=== PATIENT | female | born 1985 | race Hispanic/Latino ===

== ENCOUNTER 2017-03-22 19:08 | Inpatient (IN) | payer MEDICAID ==
[~2017-03-22] VITALS: Ht 152.4 cm; Wt 59.9 kg
[~2017-03-22 19:08] MED LIST: ACET-2247 PO
[2017-03-22 19:51] LABS: BILIRUBIN,URINE NEGATIVE (NEGATIVE); COLOR,URINE YELLOW (YELLOW); GLUCOSE, URINE (UA) NEGATIVE (NEGATIVE); KETONES,URINE >=80 mg/dL (NEGATIVE); LEUKOCYTE ESTERASE ,URINE LARGE (NEGATIVE); NITRATE,URINE NEGATIVE (NEGATIVE); OCCULT BLOOD,URINE TRACE-INTACT (NEGATIVE); PROTEIN,URINE NEGATIVE (NEGATIVE); UROBILINOGEN,URINE 0.2 mg/dL (0.2-1.0)
[2017-03-22 19:52] LABS: APPEARANCE,URINE HAZY (CLEAR)
[2017-03-22] MEDS ORDERED: AMPICILLIN 2GM+NS 100ML 100 ML IV SCH (20:00)
[2017-03-22 20:07] LABS: BACTERIA,URINE Few /HPF (None Seen)
[2017-03-22 20:08] LABS: SQUAMOUS EPITHELIAL CELL,UR 30-50 /LPF (0-2)
[2017-03-22] MEDS: LACTATED RINGERS 1000ML 1,000 ML IV SCH (20:40)
[2017-03-22 20:55] LABS: HEMATOCRIT 33.3 % (36-48); MEAN CORPUSCULAR HEMOGLOBIN 26.1 pg (27.0-33.0); MEAN CORPUSCULAR HGB CONC 32.7 g/dL (32.0-36.0); PLATELET COUNT (AUTO) 342 K/uL (130-400); RED BLOOD CELL COUNT(AUTO) 4.17 MIL/uL (4.00-5.50); WHITE BLOOD COUNT (AUTO) 5.8 K/uL (4.8-10.8)
[2017-03-23] MEDS ORDERED: NALOXONE HCL 0.4 MG/1 ML ML IV PRN
[2017-03-23] MEDS ORDERED: LACTATED RINGERS 500 ML 500 ML IV PRN
[2017-03-23] MEDS ORDERED: EPHEDRINE SULFATE 50 MG/ML AMPULE IVP PRN
[2017-03-23] MEDS ORDERED: ROPIVACAINE 0.2%200ML EPIDURAL 200 ML EP SCH
[2017-03-23] MEDS: AMPICILLIN 1GM+NS 50ML 50 ML IV SCH ×2 (00:57→08:00)
[2017-03-23] MEDS ORDERED: OXYTOCIN 10 USP UNITS/ML ONE ×2 (01:59→08:11)
[2017-03-23] MEDS ORDERED: LACTATED RINGERS 1000ML 1,000 ML IV ONE (01:59)
[2017-03-23] MEDS ORDERED: PROMETHAZINE HCL 25 MG/ML 1ML AMPULE IM SCH (02:00)
[2017-03-23] MEDS ORDERED: PROMETHAZINE HCL 25 MG/ML 1ML AMPULE IM ONE (02:25)
[2017-03-23] MEDS: OXYTOCIN-LR 20 UNITS/1000 ML 1,000 ML IV SCH ×2 (02:49→08:24)
[2017-03-23] MEDS ORDERED: MEASLES/MUMPS/RUBELLA VACCINE, LIVE 0.5 ML/VIAL SQ PRN (03:30)
[2017-03-23] MEDS ORDERED: DIPH,PERTUSS(ACELL),TET VAC/PF 0.5 ML VIAL IM PRN (03:30)
[2017-03-23] MEDS ORDERED: LANOLIN 30GM OINTMENT TP PRN (03:30)
[2017-03-23] MEDS ORDERED: WITCH HAZEL 1 PAD TP PRN (03:30)
[2017-03-23] MEDS ORDERED: ACETAMINOPHEN 325 MG TAB PO PRN (03:30)
[2017-03-23] MEDS: LACTATED RINGERS 1000ML 1,000 ML IV SCH (03:30)
[2017-03-23] MEDS ORDERED: ACETAMINOPHEN-CODEINE 300/30MG TAB PO PRN (03:30)
[2017-03-23] MEDS ORDERED: HYDROCODONE/ACETAMINOPHEN 5/325 MG TAB PO PRN (03:30)
[2017-03-23] MEDS ORDERED: BENZOCAINE/LANOLIN/ALOE VERA 60 ML AEROSOL TP PRN (03:30)
[2017-03-23 04:43] VITALS: BP 122/80
[2017-03-23] MEDS: IBUPROFEN 600 MG TABLET PO PRN ×3 (04:57→21:50)
[2017-03-23] MEDS ORDERED: OXYTOCIN 10 USP UNITS/ML 20 UNIT in LACTATED RINGERS 1000ML 1,000 ML IV SCH (05:00)
[2017-03-23 08:03] VITALS: BP 119/69
[2017-03-23] MEDS: DOCUSATE SODIUM 100 MG CAP PO SCH ×2 (08:24→20:53)
[2017-03-23 11:47] VITALS: BP 110/73
[2017-03-23 16:05] VITALS: BP 105/68
[2017-03-23 19:23] VITALS: BP 105/68
[2017-03-23 23:10] VITALS: BP 103/65
[2017-03-24 03:07] VITALS: BP 107/71
[2017-03-24 05:31] LABS: HEMATOCRIT 28.5 % (36-48); MEAN CORPUSCULAR HEMOGLOBIN 26.5 pg (27.0-33.0); MEAN CORPUSCULAR VOLUME 80.4 fL (79-99); PLATELET COUNT (AUTO) 285 K/uL (130-400); RED BLOOD CELL COUNT(AUTO) 3.54 MIL/uL (4.00-5.50); RED CELL DISTRIBUTION WIDTH 14.2 % (11.0-15.5); WHITE BLOOD COUNT (AUTO) 5.9 K/uL (4.8-10.8)
[2017-03-24 07:24] LABS: HEPATITIS Bs ANTIGEN SCREEN P Negative (Negative)
[2017-03-24 08:03] VITALS: BP 113/74
[2017-03-24] MEDS: DOCUSATE SODIUM 100 MG CAP PO SCH (09:23)
[2017-03-24] MEDS: IBUPROFEN 600 MG TABLET PO PRN (09:24)
[2017-03-24] MEDS: LACTATED RINGERS 1000ML 1,000 ML IV SCH (11:30)
[2017-03-24 12:22] VITALS: BP 112/83
== END 2017-03-24 12:10 | disposition home or self-care (01) | DRG 560 ==
LOC: LDH 19:08 → WSH 03-23 04:40
PROVIDERS: ADMIT Obstetrics & Gynecology; ATTEND Obstetrics & Gynecology
PROC: 10E0XZZ Delivery of Products of Conception, External Approach (ICD-10-PCS; principal; 2017-03-22)
PROC: 3E0R3BZ Introduction of Anesthetic Agent into Spinal Canal, Percutaneous Approach (ICD-10-PCS; 2017-03-22)
PROC: 00HU33Z Insertion of Infusion Device into Spinal Canal, Percutaneous Approach (ICD-10-PCS; 2017-03-22)
PROC: 3E0234Z Introduction of Serum, Toxoid and Vaccine into Muscle, Percutaneous Approach (ICD-10-PCS; 2017-03-22)
PROC: 3E0134Z Introduction of Serum, Toxoid and Vaccine into Subcutaneous Tissue, Percutaneous Approach (ICD-10-PCS; 2017-03-22)
DX: O69.3XX0 Labor and delivery complicated by short cord, not applicable or unspecified (principal); Z23 Encounter for immunization; Z37.0 Single live birth; Z3A.38 38 weeks gestation of pregnancy
CPT/HCPCS: 36415; 81001; 85027; 86592; 86850; 86900; 86901; 87340; 90715; A4314; J0290; J2550; J2590; J7120

== ENCOUNTER 2019-02-06 13:25 | Emergency (ER) | payer MEDICAID, OTHER ==
[2019-02-06 13:45] LABS: APPEARANCE,URINE Clear (CLEAR); BILIRUBIN,URINE Negative (NEGATIVE); COLOR,URINE Yellow (YELLOW); GLUCOSE, URINE (UA) Negative (NEGATIVE); KETONES,URINE 15 mg/dL (NEGATIVE); LEUKOCYTE ESTERASE ,URINE Small (NEGATIVE); NITRATE,URINE Negative (NEGATIVE); OCCULT BLOOD,URINE Negative (NEGATIVE); PROTEIN,URINE Negative (NEGATIVE); UROBILINOGEN,URINE 0.2 mg/dL (0.2-1.0)
[2019-02-06 13:46] LABS: HCG,QUAL RESULT POSITIVE (NEGATIVE)
[2019-02-06 13:51] LABS: BACTERIA,URINE Rare /HPF (None Seen); RBC,URINE 0-1 /HPF (0-1); SQUAMOUS EPITHELIAL CELL,UR Rare /HPF (0-2); WBC,URINE 0-1 /HPF (0-1)
== END 2019-02-06 15:00 | disposition home or self-care (01) ==
LOC: EDH 13:25
DX: O26.891 Other specified pregnancy related conditions, first trimester (principal); Z3A.09 9 weeks gestation of pregnancy; R10.2 Pelvic and perineal pain; Z90.49 Acquired absence of other specified parts of digestive tract
CPT/HCPCS: 76801; 81001; 81025

== ENCOUNTER 2019-07-17 11:44 | Observation (INO) | payer MEDICAID ==
[2019-07-17 12:15] LABS: APPEARANCE,URINE Cloudy (CLEAR); BILIRUBIN,URINE Negative (NEGATIVE); COLOR,URINE Dark Yellow (YELLOW); GLUCOSE, URINE (UA) Negative (NEGATIVE); KETONES,URINE Trace mg/dL (NEGATIVE); LEUKOCYTE ESTERASE ,URINE Large (NEGATIVE); NITRATE,URINE Negative (NEGATIVE); OCCULT BLOOD,URINE Negative (NEGATIVE); PROTEIN,URINE Negative (NEGATIVE)
[2019-07-17 12:31] LABS: BASOPHILS % (AUTO) 0.3 % (0.0-5.0); EOSINOPHILS % (AUTO) 0.8 % (0.0-8.0); LYMPHOCYTES % (AUTO) 28.4 % (21.0-51.0); MEAN CORPUSCULAR HEMOGLOBIN 27.8 pg (27.0-33.0); MEAN CORPUSCULAR HGB CONC 32.4 g/dL (32.0-36.0); MEAN CORPUSCULAR VOLUME 85.8 fL (79-99); MONOCYTES % (AUTO) 7.4 % (3.0-13.0); NEUTROPHILS % (AUTO) 62.4 % (40.0-77.0); PLATELET COUNT (AUTO) 288 K/uL (130-400); RED BLOOD CELL COUNT(AUTO) 4.43 MIL/uL (4.00-5.50); RED CELL DISTRIBUTION WIDTH 12.2 % (11.0-15.5); WHITE BLOOD COUNT (AUTO) 6.1 K/uL (4.8-10.8)
[2019-07-17 12:32] LABS: BACTERIA,URINE Few /HPF (None Seen); RBC,URINE 0-1 /HPF (0-1)
[2019-07-17 12:33] LABS: MUCUS,URINE Few LPF (None Seen); SQUAMOUS EPITHELIAL CELL,UR Moderate /HPF (0-2)
[2019-07-17 12:46] LABS: CREATININE 0.6 mg/dL (0.5-1.5); POTASSIUM 3.6 mmol/L (3.5-5.1)
[2019-07-17 13:14] LABS: ALBUMIN 2.6 g/dL (3.5-5.0); BILIRUBIN,DIRECT 0.1 mg/dL (0.0-0.3); BILIRUBIN,TOTAL 0.3 mg/dL (0.2-1.0); TOTAL PROTEIN, SERUM 6.8 g/dL (6.0-8.3)
== END 2019-07-17 16:45 | disposition home or self-care (01) ==
LOC: EDH 11:44 → LDH 11:45 → UNDOADMOB 11:57 → EDH 15:44
PROVIDERS: ADMIT Obstetrics & Gynecology; ATTEND Obstetrics & Gynecology
DX: O26.893 Other specified pregnancy related conditions, third trimester (principal); R51 Headache; R53.83 Other fatigue; R42 Dizziness and giddiness; R10.9 Unspecified abdominal pain; Z3A.32 32 weeks gestation of pregnancy
CPT/HCPCS: 36415; 80048; 80076; 81001; 82550; 84702; 85025; 87088; 93005; 99284; G0378 ×6

== ENCOUNTER 2019-08-17 12:18 | Observation (INO) | payer MEDICAID ==
[~2019-08-17] VITALS: Ht 152.4 cm; Wt 64.9 kg
[2019-08-17] MEDS ORDERED: LACTATED RINGERS 1000ML 1,000 ML IV SCH (13:15)
[2019-08-17] MEDS ORDERED: TERBUTALINE SULFATE VIAL 1MG/ML SQ SCH (14:30)
[2019-08-17 14:48] LABS: APPEARANCE,URINE SL CLOUDY (CLEAR); BILIRUBIN,URINE NEGATIVE (NEGATIVE); COLOR,URINE YELLOW (YELLOW); GLUCOSE, URINE (UA) NEGATIVE (NEGATIVE); KETONES,URINE 40 mg/dL (NEGATIVE); LEUKOCYTE ESTERASE ,URINE MODERATE (NEGATIVE); NITRATE,URINE NEGATIVE (NEGATIVE); OCCULT BLOOD,URINE NEGATIVE (NEGATIVE); PH,URINE 5.5 (5.0-8.0); PROTEIN,URINE NEGATIVE (NEGATIVE); UROBILINOGEN,URINE 0.2 mg/dL (0.2-1.0)
[2019-08-17 14:59] LABS: RBC,URINE None Seen /HPF (0-1)
[2019-08-17 15:00] LABS: BACTERIA,URINE Moderate /HPF (None Seen)
[2019-08-17] MEDS ORDERED: CEFTRIAXONE SODIUM 1 GM IVP SCH (17:15)
== END 2019-08-17 18:18 | disposition home or self-care (01) ==
LOC: LDH 12:18
PROVIDERS: ADMIT Obstetrics & Gynecology; ATTEND Obstetrics & Gynecology
DX: O26.893 Other specified pregnancy related conditions, third trimester (principal); R10.9 Unspecified abdominal pain; Z3A.36 36 weeks gestation of pregnancy
CPT/HCPCS: 81001; 87088; 96372; G0378 ×5; J0696; J3105; 96360; 96361; 96374

== ENCOUNTER 2019-08-20 01:06 | Inpatient (IN) | payer MEDICAID ==
[~2019-08-20] VITALS: Ht 152.4 cm; Wt 64.4 kg
[2019-08-20] MEDS ORDERED: LACTATED RINGERS 1000ML 1,000 ML IV SCH (01:30)
[2019-08-20 01:36] LABS: APPEARANCE,URINE CLEAR (CLEAR); BILIRUBIN,URINE NEGATIVE (NEGATIVE); COLOR,URINE YELLOW (YELLOW); GLUCOSE, URINE (UA) NEGATIVE (NEGATIVE); KETONES,URINE NEGATIVE (NEGATIVE); LEUKOCYTE ESTERASE ,URINE TRACE (NEGATIVE); NITRATE,URINE NEGATIVE (NEGATIVE); OCCULT BLOOD,URINE LARGE (NEGATIVE); PH,URINE 6.5 (5.0-8.0); PROTEIN,URINE TRACE mg/dL (NEGATIVE); UROBILINOGEN,URINE 0.2 mg/dL (0.2-1.0)
[2019-08-20 01:43] LABS: BACTERIA,URINE None Seen /HPF (None Seen); RBC,URINE 26-50 /HPF (0-1)
[2019-08-20 01:44] LABS: AMPHET/METH SCREEN,URINE NEGATIVE (NEGATIVE); BARBITURATE SCREEN, URINE NEGATIVE (NEGATIVE); BENZODIAZEPINES SCREEN,URINE NEGATIVE (NEGATIVE); CANNABINOID SCREEN,URINE NEGATIVE (NEGATIVE); COCAINE SCREEN,URINE NEGATIVE (NEGATIVE); OPIATE SCREEN,URINE NEGATIVE (NEGATIVE); PHENCYCLIDINE SCREEN,URINE NEGATIVE (NEGATIVE)
[2019-08-20] MEDS ORDERED: LACTATED RINGERS 1000ML 1,000 ML IV PRN (02:08)
[2019-08-20 02:13] VITALS: BP 137/89
[2019-08-20] MEDS ORDERED: OXYTOCIN-LR 20 UNITS/1000 ML 1,000 ML IV SCH ×2 (02:15→15:00)
[2019-08-20 02:25] LABS: HEMATOCRIT 34.3 % (36-48); MEAN CORPUSCULAR HEMOGLOBIN 27.9 pg (27.0-33.0); MEAN CORPUSCULAR HGB CONC 33.2 g/dL (32.0-36.0); MEAN CORPUSCULAR VOLUME 83.9 fL (79-99); RED BLOOD CELL COUNT(AUTO) 4.09 MIL/uL (4.00-5.50); WHITE BLOOD COUNT (AUTO) 6.8 K/uL (4.8-10.8)
[2019-08-20] MEDS ORDERED: OXYTOCIN 10 USP UNITS/ML 20 UNIT in LACTATED RINGERS 1000ML 1,000 ML IV SCH (09:15)
[2019-08-20] MEDS ORDERED: LACTATED RINGERS 500 ML 500 ML IV PRN (10:00)
[2019-08-20] MEDS ORDERED: EPHEDRINE SULFATE 50 MG/ML AMPULE IVP PRN (10:00)
[2019-08-20] MEDS ORDERED: NALOXONE HCL 0.4 MG/1 ML ML IV PRN (10:00)
[2019-08-20] MEDS ORDERED: IBUPROFEN 600 MG TABLET ONE (14:44)
[2019-08-20] MEDS ORDERED: LANOLIN 30GM OINTMENT TP PRN (15:00)
[2019-08-20] MEDS ORDERED: MEASLES/MUMPS/RUBELLA VACCINE, LIVE 0.5 ML/VIAL SQ PRN (15:00)
[2019-08-20] MEDS ORDERED: DIPH,PERTUSS(ACELL),TET VAC/PF 0.5 ML VIAL IM PRN (15:00)
[2019-08-20] MEDS ORDERED: BENZOCAINE/LANOLIN/ALOE VERA 60 ML AEROSOL TP PRN (15:00)
[2019-08-20] MEDS ORDERED: ACETAMINOPHEN 325 MG TAB PO PRN (15:00)
[2019-08-20] MEDS ORDERED: WITCH HAZEL 1 PAD TP PRN (15:00)
[2019-08-20] MEDS ORDERED: ACETAMINOPHEN-CODEINE 300/30MG TAB PO PRN (15:00)
[2019-08-20 16:18] VITALS: BP 114/66
[2019-08-20 19:50] VITALS: BP 122/72
[2019-08-20] MEDS: DOCUSATE SODIUM 100 MG CAP PO SCH (20:34)
[2019-08-20] MEDS: IBUPROFEN 600 MG TABLET PO PRN (20:35)
[2019-08-20 23:49] VITALS: BP 113/67
[2019-08-21 02:40] VITALS: BP 109/78
[2019-08-21] MEDS: IBUPROFEN 600 MG TABLET PO PRN (05:36)
[2019-08-21 06:04] LABS: HEMATOCRIT 33.5 % (36-48); MEAN CORPUSCULAR HEMOGLOBIN 26.8 pg (27.0-33.0); MEAN CORPUSCULAR HGB CONC 31.3 g/dL (32.0-36.0); MEAN CORPUSCULAR VOLUME 85.5 fL (79-99); RED BLOOD CELL COUNT(AUTO) 3.92 MIL/uL (4.00-5.50); RED CELL DISTRIBUTION WIDTH 13.2 % (11.0-15.5); WHITE BLOOD COUNT (AUTO) 11.1 K/uL (4.8-10.8)
[2019-08-21 07:58] VITALS: BP 111/74
[2019-08-21 10:10] LABS: HEPATITIS Bs ANTIGEN SCREEN P Negative (Negative)
[2019-08-21] MEDS: DOCUSATE SODIUM 100 MG CAP PO SCH (10:16)
[2019-08-21 11:52] VITALS: BP 102/66
--- NOTE | 2019-08-21 14:25 | NUR ---
DISCHARGE PT LEFT UNIT VIA WHEELCHAIR, WITH BABY IN ARMS, ACCOMPANIED BY SIGNIFICANT OTHER. DENIED PAIN AND HAD NO COMPLAINTS. BABY STRAPPED IN CAR SEAT. PT AND BABY TRANSPORTED BY PERSONAL VEHICLE.
== END 2019-08-21 14:25 | disposition home or self-care (01) | DRG 560 ==
LOC: EDH 01:06 → OBSVTOIN 01:07 → LDH 01:07 → WSH 16:06
PROVIDERS: ADMIT Obstetrics & Gynecology; ATTEND Obstetrics & Gynecology
PROC: 10E0XZZ Delivery of Products of Conception, External Approach (ICD-10-PCS; principal; 2019-08-20)
PROC: 10907ZC Drainage of Amniotic Fluid, Therapeutic from Products of Conception, Via Natural or Artificial Opening (ICD-10-PCS; 2019-08-20)
PROC: 3E0R3BZ Introduction of Anesthetic Agent into Spinal Canal, Percutaneous Approach (ICD-10-PCS; 2019-08-20)
PROC: 00HU33Z Insertion of Infusion Device into Spinal Canal, Percutaneous Approach (ICD-10-PCS; 2019-08-20)
PROC: 3E0234Z Introduction of Serum, Toxoid and Vaccine into Muscle, Percutaneous Approach (ICD-10-PCS; 2019-08-20)
PROC: 3E0134Z Introduction of Serum, Toxoid and Vaccine into Subcutaneous Tissue, Percutaneous Approach (ICD-10-PCS; 2019-08-20)
DX: O69.1XX0 Labor and delivery complicated by cord around neck, with compression, not applicable or unspecified (principal); Z37.0 Single live birth; Z23 Encounter for immunization; Z3A.37 37 weeks gestation of pregnancy
CPT/HCPCS: 36415; 80305; 81001; 85027; 86592; 86850; 86900; 86901; 87088; 87340; 90715; 96360; 96361; 96372; 96374; A4314; G0378; J0696; J2590; J3105; J7120

== ENCOUNTER 2021-05-14 15:19 | Observation (INO) | payer MEDICAID ==
[~2021-05-14] VITALS: Ht 152.4 cm; Wt 58.1 kg
[2021-05-14 15:21] VITALS: BP 111/79
[2021-05-14 15:49] LABS: APPEARANCE,URINE CLEAR (CLEAR); BILIRUBIN,URINE SMALL (NEGATIVE); COLOR,URINE YELLOW (YELLOW); GLUCOSE, URINE (UA) NEGATIVE (NEGATIVE); KETONES,URINE >=80 mg/dL (NEGATIVE); LEUKOCYTE ESTERASE ,URINE SMALL (NEGATIVE); NITRATE,URINE NEGATIVE (NEGATIVE); OCCULT BLOOD,URINE TRACE-LYSED (NEGATIVE); PROTEIN,URINE TRACE mg/dL (NEGATIVE); UROBILINOGEN,URINE 0.2 mg/dL (0.2-1.0)
[2021-05-14 16:03] LABS: BACTERIA,URINE Few /HPF (None Seen)
[2021-05-14 16:04] LABS: MUCUS,URINE Few LPF (None Seen); SQUAMOUS EPITHELIAL CELL,UR Moderate /HPF (0-2)
[2021-05-15] MEDS ORDERED: PREN-196 PO (00:58)
[2021-05-15] MEDS ORDERED: ASCO500T19 PO (18:29)
== END 2021-05-14 17:18 | disposition home or self-care (01) ==
LOC: EDH 15:19 → LDH 15:35
PROVIDERS: ADMIT Obstetrics & Gynecology; ATTEND Obstetrics & Gynecology
DX: O36.8330 Maternal care for abnormalities of the fetal heart rate or rhythm, third trimester, not applicable or unspecified (principal); O62.9 Abnormality of forces of labor, unspecified; Z3A.37 37 weeks gestation of pregnancy
CPT/HCPCS: 59025; 76819; 81001; 87088; G0378 ×2; G0379